=== PATIENT | male | born 1960 | race Caucasian/White ===

== ENCOUNTER 2017-08-06 14:16 | Emergency (ER) | payer OTHER ==
[~2017-08-06] VITALS: Ht 172.7 cm; Wt 68.3 kg
[2017-08-06 15:06] LABS: HEMATOCRIT 46.1 % (38.0-50.0); HEMOGLOBIN 16.8 G/DL (12.5-16.6); MCH 32.9 PG (29.0-34.0); MCHC 36.4 G/DL (30.0-36.0); MCV 90.4 FL (86-99); PLATELET COUNT 110 K/uL (156-360); RBC DIS.WIDTH-CV 13.1 % (11.8-14.6); RBC DIS.WIDTH-SD 43.3 % (39-53); WHITE BLOOD COUNT 7.6 K/uL (4.1-10.2)
[2017-08-06 15:14] LABS: ALBUMIN 4.4 g/dL (3.2-4.8); CHLORIDE 95 mEq/L (99-109); POTASSIUM 3.6 mEq/L (3.7-5.4); SODIUM 134 mEq/L (136-147)
[2017-08-06 15:17] LABS: GLUCOSE 99 mg/dL (70-99); TOTAL PROTEIN 8.1 g/dL (6.4-8.3)
[2017-08-06 15:19] LABS: TOTAL BILIRUBIN 0.6 mg/dL (0.0-1.0)
[2017-08-06 15:20] LABS: ALKALINE PHOSPHATASE 136 IU/L (3-129); CREATININE 0.9 mg/dL (0.6-1.3); SERUM ETHYL ALCOHOL < 10 mg/dL
[2017-08-06 15:22] LABS: AST (GOT) 63 IU/L (2-34); UREA NITROGEN (BUN) 13 mg/dL (9-23)
[2017-08-06 15:23] LABS: ALT (GPT) 41 IU/L (3-49)
[2017-08-06 15:26] LABS: GFR ESTIMATE (CALCULATED) > 59 mL/min/ (58.99-99999)
[2017-08-06 15:30] LABS: TROP-I INTERPRETATION NEGATIVE; TROPONIN-I < 0.01 ng/mL (0.0-0.30)
[2017-08-06 17:52] LABS: AMPHETAMINE NEGATIVE (500 ng/mL); BARBITURATES NEGATIVE (200 ng/mL); BENZODIAZEPINES NEGATIVE (150 ng/mL); BUPRENORPHINE NEGATIVE (10 ng/mL); COCAINE NEGATIVE (150 ng/mL); METHADONE NEGATIVE (200 ng/mL); METHAMPHETAMINE NEGATIVE (500 ng/mL); OPIATES (MORPHINE) NEGATIVE (100 ng/mL); OXYCODONE NEGATIVE (100 ng/mL); PHENCYCLIDINE NEGATIVE (25 ng/mL); PROPOXYPHENE NEGATIVE (300 ng/mL); THC CANNABINOIDS NEGATIVE (50 ng/mL); TRICYCLIC ANTIDEPRESSANTS NEGATIVE (300 ng/mL)
[2017-08-06 22:10] VITALS: BP 135/81
== END 2017-08-06 22:11 | disposition short-term general hospital (02) ==
LOC: EME 14:16
DX: R07.9 Chest pain, unspecified (principal); F10.239 Alcohol dependence with withdrawal, unspecified; J44.9 Chronic obstructive pulmonary disease, unspecified; I10 Essential (primary) hypertension; F17.200 Nicotine dependence, unspecified, uncomplicated; Z82.49 Family history of ischemic heart disease and other diseases of the circulatory system
CPT/HCPCS: 71046; 80053; 84484; 85027; 93005; 94640; 99281; 99285; G0480